=== PATIENT | female | born 1935 | race Caucasian/White ===

== ENCOUNTER 2024-07-06 17:25 | Inpatient (IN) | payer MEDICARE, OTHER ==
[~2024-07-06] VITALS: Ht 157.5 cm; Wt 47.6 kg
[2024-07-06 19:13] LABS: LYMPHOCYTES # (AUTO) 0.3 K/uL (0.8-4.8); MONOCYTES # (AUTO) 0.1 K/uL (0.1-1.30); NEUTROPHILS # (AUTO) 0.6 K/uL (1.8-8.9)
[2024-07-06 19:29] LABS: BASOPHILS % (AUTO) 1.2 % (0.0-2.0); DIFFERENTIAL COMMENT 0; EOSINOPHILS % (AUTO) 0.1 % (0.0-7.0); LYMPHOCYTES % (AUTO) 26.2 % (20.5-51.5); MEAN CORPUSCULAR HEMOGLOBIN 29.4 uug (24.7-32.8); MEAN CORPUSCULAR HGB CONC 35 g/dL (32.3-35.6); MEAN CORPUSCULAR VOLUME 84.7 fL (75.5-95.3); MONOCYTES % (AUTO) 8.5 % (0.0-11.0); RED CELL DISTRIBUTION WIDTH 13.5 % (12.3-17.7)
[2024-07-06 19:37] LABS: HEMATOCRIT 16.6 % (31.2-41.9); HEMOGLOBIN 5.8 g/dL (10.9-14.3); PLATELET COUNT (AUTO) 46 K/uL (179-408); RED BLOOD CELL COUNT(AUTO) 1.96 MIL/uL (3.63-4.92)
[2024-07-06 19:53] LABS: CARBON DIOXIDE 22 mmol/L (21-32); CHLORIDE 101 mmol/L (98-107); CREATININE 0.8 mg/dL (0.6-1.3); GLUCOSE 336 mg/dL (74-106); POTASSIUM 3.7 mmol/L (3.5-5.1); SODIUM SERUM 137 mmol/L (136-145); UREA NITROGEN, BLOOD 21 mg/dL (7-18)
[2024-07-06 20:01] LABS: ALBUMIN 3.2 g/dL (3.4-5.0); ALKALINE PHOSPHATASE 84 U/L (50-136); ASPARTATE AMINOTRANSFERASE 21 U/L (15-37); BILIRUBIN,DIRECT 0.3 mg/dL (0.0-0.2); BILIRUBIN,TOTAL 1.3 mg/dL (0.2-1.0); TOTAL PROTEIN, SERUM 6.3 g/dL (6.4-8.2)
[2024-07-06] MEDS: IV NORMAL SALINE 1000 ML BAG IV ONE (20:13)
[2024-07-06] MEDS ORDERED: PANTOPRAZOLE SODIUM 40 MG VIAL ONE (20:23)
[2024-07-06] MEDS: PANTOPRAZOLE SODIUM 40 MG VIAL IV ONE (20:25)
[2024-07-06 20:29] LABS: ALANINE AMINOTRANSFERASE 16 U/L (14-59)
[2024-07-06] MEDS ORDERED: ALPRAZOLAM 0.25 MG TABLET PO ONE (21:00)
[2024-07-06 22:22] LABS: LYMPHOCYTES % (MANUAL) 23 % (20-40); MONOCYTES % (MANUAL) 8 % (2-10); NEUTROPHILS % (MANUAL) 69 % (42-75); PLATELET ESTIMATE MARKED DECREASED
[2024-07-06 22:23] LABS: ANISOCYTOSIS 1+
[2024-07-07] MEDS ORDERED: MAGNESIUM HYDROXIDE 30 ML LIQUID UDC PO PRN
[2024-07-07] MEDS ORDERED: ACETAMINOPHEN 325 MG TABLET PO PRN
[2024-07-07] MEDS ORDERED: ONDANSETRON 4 MG/2 ML VIAL IV PRN
[2024-07-07] MEDS ORDERED: AZITHROMYCIN IV 500 MG in IV DEXTROSE 5% 250 ML IV SCH ×2 (00:15)
[2024-07-07 00:42] VITALS: BP 116/62; TEMP 98.8; O2SAT 91
[2024-07-07 01:14] LABS: ABG BASE EXCESS -2.3 mmol/L (-2.0-3.0); ABG HCO3 20.1 mmol/L (21.0-28.0); ABG PCO2 24.8 mmHg (32.0-45.0); ABG PH 7.527 (7.350-7.450); ABG PO2 316.3 mmHg (83.0-108.0); ABG SITE RIGHT BRACHIAL; ABG TOTAL HEMOGLOBIN 6.4 G/dL (12.0-16.0); AaDO2 99.8 mmHg; COHb 0.9 % (0.5-1.5); MetHb 0.4 % (0.0-1.5)
[2024-07-07] MEDS: IV NS 1000 ML 1,000 ML IV PRN (02:05)
[2024-07-07] MEDS ORDERED: CEFTRIAXONE /D5W 50ML IVPB **ER PYXIS IV ONE (02:55)
[2024-07-07] MEDS: CEFTRIAXONE 1 G in IV DEXTROSE 5% 50 ML IV SCH (03:11)
[2024-07-07 05:19] VITALS: BP 144/58; TEMP 98.9; O2SAT 94
[2024-07-07 07:35] LABS: BASOPHILS % (AUTO) 0.9 % (0.0-2.0); EOSINOPHILS % (AUTO) 0.2 % (0.0-7.0); LYMPHOCYTES # (AUTO) 0.4 K/uL (0.8-4.8); LYMPHOCYTES % (AUTO) 30.6 % (20.5-51.5); MEAN CORPUSCULAR HEMOGLOBIN 30.2 uug (24.7-32.8); MEAN CORPUSCULAR HGB CONC 35 g/dL (32.3-35.6); MEAN CORPUSCULAR VOLUME 85.8 fL (75.5-95.3); MONOCYTES # (AUTO) 0.2 K/uL (0.1-1.30); MONOCYTES % (AUTO) 12.2 % (0.0-11.0); NEUTROPHILS # (AUTO) 0.7 K/uL (1.8-8.9); NEUTROPHILS % (AUTO) 56.1 % (38.5-71.5); RED CELL DISTRIBUTION WIDTH 14.1 % (12.3-17.7)
[2024-07-07 07:48] LABS: CALCIUM 7.4 mg/dL (8.5-10.1); CARBON DIOXIDE 22 mmol/L (21-32); CHLORIDE 103 mmol/L (98-107); CREATININE 0.7 mg/dL (0.6-1.3); GLUCOSE 322 mg/dL (74-106); MAGNESIUM 1.5 mg/dL (1.8-2.4); POTASSIUM 3.7 mmol/L (3.5-5.1); SODIUM SERUM 135 mmol/L (136-145); UREA NITROGEN, BLOOD 24 mg/dL (7-18)
[2024-07-07 08:35] LABS: DIFFERENTIAL COMMENT 1; HEMATOCRIT 20.9 % (31.2-41.9); HEMOGLOBIN 7.4 g/dL (10.9-14.3); PLATELET COUNT (AUTO) 46 K/uL (179-408); RED BLOOD CELL COUNT(AUTO) 2.44 MIL/uL (3.63-4.92); WHITE BLOOD COUNT (AUTO) 1.3 K/uL (3.8-11.8)
[2024-07-07] MEDS: DOXYCYCLINE HYCLATE IV 100 MG in IV DEXTROSE 5% 100 ML IV SCH (09:28)
[2024-07-07] MEDS: MAGNESIUM SULFATE/D5W 100 ML IV SCH (10:31)
[2024-07-07] MEDS ORDERED: SIMV10TA98 PO (15:24)
[2024-07-07] MEDS ORDERED: LATA7.5D OP (15:25)
[2024-07-07] MEDS ORDERED: LEVO75TA7 PO (15:26)
[2024-07-07] MEDS ORDERED: METF-440 PO (15:26)
[2024-07-07] MEDS ORDERED: LOSA50TA39 PO (15:28)
[2024-07-07] MEDS ORDERED: GLIP5TAB13 PO (15:29)
[2024-07-07] MEDS ORDERED: TIMO5DRO18 LEFTEYE (15:33)
[2024-07-07 15:59] LABS: LYMPHOCYTES % (MANUAL) 29 % (20-40); MONOCYTES % (MANUAL) 11 % (2-10); MYELOCYTES % 1 % (0-0); NEUTROPHILS % (MANUAL) 59 % (42-75); PLATELET ESTIMATE MARKED DECREASED
[2024-07-07 16:00] LABS: ANISOCYTOSIS 1+; HYPOCHROMASIA 1+
[2024-07-07 16:58] VITALS: O2SAT 94
[2024-07-07 19:30] VITALS: BP 141/55; TEMP 98; O2SAT 96
== END 2024-07-08 01:30 | disposition short-term general hospital (02) | DRG 808 ==
LOC: ER 17:25 → TELE3 23:46
PROVIDERS: ADMIT Nurse Practitioner Acute Care; ATTEND Nurse Practitioner Acute Care
PROC: 30233N1 Transfusion of Nonautologous Red Blood Cells into Peripheral Vein, Percutaneous Approach (ICD-10-PCS; principal; 2024-07-06)
PROC: 06HY33Z Insertion of Infusion Device into Lower Vein, Percutaneous Approach (ICD-10-PCS; 2024-07-06)
DX: D61.818 Other pancytopenia (principal); I21.A1 Myocardial infarction type 2; J15.9 Unspecified bacterial pneumonia; E44.1 Mild protein-calorie malnutrition; D46.9 Myelodysplastic syndrome, unspecified; E78.5 Hyperlipidemia, unspecified; E11.65 Type 2 diabetes mellitus with hyperglycemia; E88.09 Other disorders of plasma-protein metabolism, not elsewhere classified
CPT/HCPCS: 36415; 36600; 70030-TC; 71045; 74018; 82803; 83605; 83735; 84100; 84484; 85025; 85610; 86850; 86900; 86901; 86920; 87040; 93307; A4606; A4663; A6213; G0378; J0696; J2470; J3475; J3490; J7040; P9016